=== PATIENT | male | born 1960 | race Caucasian/White ===

== ENCOUNTER 2018-03-31 07:44 | Day surgery (SDC) | payer OTHER ==
[~2018-03-31 07:44] MED LIST: LIDOCAINE HCL 1% MPF SOL ONE; PROPOFOL 500 MG/50 ML EMU IV ONE
[2018-03-31 09:24] VITALS: TEMP 97.2
[2018-03-31 09:48] VITALS: O2SAT 98
[2018-03-31 10:05] VITALS: BP 115/74; PULSE 77; RESP 18
[2018-03-31 22:49] LABS: *FOLATE 14.3 ng/ml (2.6-20.0)
== END 2018-03-31 10:23 | disposition home or self-care (01) | DRG 951 ==
LOC: SURG 07:44
PROVIDERS: ATTEND Internal Medicine Gastroenterology
DX: Z12.11 Encounter for screening for malignant neoplasm of colon (principal); D12.3 Benign neoplasm of transverse colon; D64.9 Anemia, unspecified; K52.9 Noninfective gastroenteritis and colitis, unspecified; E11.9 Type 2 diabetes mellitus without complications; Z86.010 Personal history of colon polyps; K57.30 Diverticulosis of large intestine without perforation or abscess without bleeding; K64.8 Other hemorrhoids; Z79.4 Long term (current) use of insulin
CPT/HCPCS: 82962; J2001; J2704